=== PATIENT | male | born 1940 | race Caucasian/White ===

== ENCOUNTER 2020-01-15 13:42 | Inpatient (IN) | payer MEDICARE, OTHER ==
[~2020-01-15] VITALS: Ht 167.6 cm; Wt 75.8 kg
--- NOTE | 2020-01-15 15:26 | NUR ---
PATIENT HAD A FALL A FEW DAYS AGO AND HIT HIS HIP ON RIGHT SIDE. HE WAS ABLE TO MOVE AROUND AND NOT IN PAIN, THEN HE NOTICIED HE IS NOT GETTING BETTER SO HE CAME IN. IT IS NOT SHORTENED AND NOT ROTATED. HE CAN WALK
[2020-01-15] MEDS ORDERED: SODIUM CHLORIDE FLUSH 10ML SYR IVF ONE (16:30)
[2020-01-15] MEDS ORDERED: SODIUM CHLORIDE 0.9% 1,000 ML IV SCH (16:34)
[2020-01-15 16:37] LABS: BASOPHILS # (AUTO) 0.05 x10^3/uL (0-0.1); BASOPHILS % (AUTO) 1 % (0-1); EOSINOPHILS # (AUTO) 0.07 x10^3/uL (0-0.4); EOSINOPHILS % (AUTO) 1 % (1-7); LYMPHOCYTES # (AUTO) 2.47 x10^3/uL (1-3.4); LYMPHOCYTES % (AUTO) 24 % (22-44); MD NO; MEAN CORPUSCULAR HGB CONC 33.4 g/dL (33.2-36.2); MEAN CORPUSCULAR VOLUME 107.9 fL (81-97); MEAN PLATELET VOLUME 7.9 fL (7.4-10.4); MONOCYTES # (AUTO) 0.81 x10^3/uL (0.2-0.8); MONOCYTES % (AUTO) 8 % (2-9); NEUTROPHILS # (AUTO) 7.03 x10^3/uL (1.8-6.8); NEUTROPHILS % (AUTO) 67 % (42-75); PLATELET COUNT 480 x10^3/uL (130-400); RED BLOOD COUNT 4.09 x10^6/uL (4.38-5.82); RED CELL DISTRIBUTION WIDTH 13.3 % (9.4-14.8)
[2020-01-15 16:41] LABS: ANION GAP 9 mmol/L (5-15); CALCIUM 9.2 mg/dL (8.5-10.1); CHLORIDE 105 mmol/L (98-107); CREATININE 0.82 mg/dL (0.7-1.3)
[2020-01-15 17:09] LABS: ALBUMIN 4.2 g/dL (3.4-5.0); BILIRUBIN, DIRECT 0.2 mg/dL (0.1-0.2)
--- NOTE | 2020-01-15 17:18 | NUR ---
REPORT TO SURGERY SBAR. PATIENT HAS FLUIDS RUNNING, AOX4, VSS. LEFT FOR SURGERY
[2020-01-15 17:35] LABS: BILIRUBIN,INDIRECT 0.6 mg/dL (0.0-2.0); BILIRUBIN,TOTAL 0.8 mg/dL (0.2-1.0); TOTAL PROTEIN 8.1 g/dL (6.4-8.2)
[2020-01-15] MEDS ORDERED: CHLORHEXIDINE 15 ML UDC ONE (18:08)
[2020-01-15] MEDS ORDERED: FENTANYL PF 100 MCG/2ML ONE (18:31)
[2020-01-15] MEDS ORDERED: SUCCINYLCHOLINE 20 MG/ML, 10ML ONE (18:34)
[2020-01-15] MEDS ORDERED: PROPOFOL 10 MG/ML, 20ML ONE (18:34)
[2020-01-15] MEDS ORDERED: CEFAZOLIN 1,000 MG ONE (18:34)
[2020-01-15] MEDS ORDERED: ROCURONIUM 10 MG/ML,10ML ONE (18:34)
[2020-01-15] MEDS ORDERED: ONDANSETRON 2MG/ML, 2ML IV PRN (19:00)
[2020-01-15] MEDS ORDERED: HYDROmorphone 2 MG/ML, 1ML IVPush PRN (19:00)
[2020-01-15] MEDS ORDERED: LORazepam 2 MG/ML, 1ML IVPush PRN (19:00)
[2020-01-15] MEDS ORDERED: LABETALOL 5MG/ML, 20ML IV PRN (19:00)
[2020-01-15] MEDS ORDERED: MEPERIDINE/PF 25MG/ML,1ML IVPush PRN (19:00)
[2020-01-15] MEDS ORDERED: hydrALAzine 20 MG/ML, 1ML IV PRN (19:00)
[2020-01-15] MEDS ORDERED: ACETAMINOPHEN 325 MG TABLET PO PRN (19:00)
[2020-01-15] MEDS ORDERED: BUPIVACAINE/PF-EPI 0.5% 1:200K ONE (19:20)
[2020-01-15] MEDS: FENTANYL PF 100 MCG/2ML IV PRN ×3 (20:00→20:35)
[2020-01-15] MEDS: OXYcodone 5 MG/5 ML ORAL.SOL UDC PO PRN ×2 (20:23→20:39)
[2020-01-15] MEDS ORDERED: OXYcodone IR 5MG TABLET PO PRN (23:00)
[2020-01-15] MEDS ORDERED: MORPHINE SULFATE 4 MG/ML, 1ML IVPush PRN (23:00)
[2020-01-15] MEDS ORDERED: ONDANSETRON 2MG/ML, 2ML IVPush PRN (23:00)
[2020-01-15 23:51] VITALS: BP 114/48
[2020-01-16 03:28] VITALS: BP 118/67
[2020-01-16] MEDS: CEFAZOLIN PMX 2GM/50ML 50 ML IVPB SCH ×2 (04:26→12:20)
[2020-01-16 05:26] LABS: ANION GAP 5 mmol/L (5-15); CALCIUM 8.3 mg/dL (8.5-10.1); CHLORIDE 109 mmol/L (98-107)
[2020-01-16 05:33] LABS: MEAN CORPUSCULAR HEMOGLOBIN 35.6 pg (27.5-34.5); MEAN CORPUSCULAR HGB CONC 32.9 g/dL (33.2-36.2); MEAN CORPUSCULAR VOLUME 108.3 fL (81-97); MEAN PLATELET VOLUME 8.1 fL (7.4-10.4); PLATELET COUNT 410 x10^3/uL (130-400); RED BLOOD COUNT 3.55 x10^6/uL (4.38-5.82); RED CELL DISTRIBUTION WIDTH 13.6 % (9.4-14.8)
[2020-01-16 05:38] LABS: CREATININE 0.75 mg/dL (0.7-1.3)
[2020-01-16 06:08] LABS: BASOPHILS # (AUTO) 0.03 x10^3/uL (0-0.1); BASOPHILS % (AUTO) 0 % (0-1); EOSINOPHILS # (AUTO) 0.16 x10^3/uL (0-0.4); EOSINOPHILS % (AUTO) 2 % (1-7); LYMPHOCYTES # (AUTO) 2.87 x10^3/uL (1-3.4); LYMPHOCYTES % (AUTO) 28 % (22-44); MD SCAN; MONOCYTES # (AUTO) 1.13 x10^3/uL (0.2-0.8); MONOCYTES % (AUTO) 11 % (2-9); NEUTROPHILS # (AUTO) 6.05 x10^3/uL (1.8-6.8); NEUTROPHILS % (AUTO) 59 % (42-75)
[2020-01-16 07:35] VITALS: BP 127/65
[2020-01-16] MEDS ORDERED: ENOXAPARIN 40 MG/0.4 ML SQ SCH (11:00)
[2020-01-16] MEDS ORDERED: CYANOCOBALAMIN 1,000 MCG TABLET PO SCH (11:00)
[2020-01-16] MEDS ORDERED: CYAN-27 PO (12:04)
[2020-01-16] MEDS ORDERED: ASPI-515 PO (12:04)
[2020-01-16 13:19] VITALS: BP 114/59
== END 2020-01-16 17:00 | disposition home health service (06) | DRG 481 ==
LOC: ED 16:07 → EDIP 16:27 → 4NE 20:50
PROVIDERS: ADMIT Internal Medicine; ATTEND Internal Medicine
PROC: 0QH634Z Insertion of Internal Fixation Device into Right Upper Femur, Percutaneous Approach (ICD-10-PCS; principal; 2020-01-15 17:45)
DX: S72.001A Fracture of unspecified part of neck of right femur, initial encounter for closed fracture (principal); R71.0 Precipitous drop in hematocrit; E86.0 Dehydration; D75.89 Other specified diseases of blood and blood-forming organs; E78.5 Hyperlipidemia, unspecified; I25.10 Atherosclerotic heart disease of native coronary artery without angina pectoris; Z85.828 Personal history of other malignant neoplasm of skin; W18.39XA Other fall on same level, initial encounter; Y93.89 Activity, other specified; Y92.000 Kitchen of unspecified non-institutional (private) residence as the place of occurrence of the external cause; Y99.8 Other external cause status
CPT/HCPCS: 36415; 71045; 72192; 76000; 80048; 80076; 82607; 84443; 85025; 93005; 99285; C1713; G0378; J0690; J1650; J2704; J3010; J0330; J7030